=== PATIENT | female | born 1980 | race Caucasian/White ===

== ENCOUNTER → 2020-07-15 | Outpatient (CLI) | payer OTHER, SELFPAY ==
--- NOTE | 2020-07-16 09:08 | MRI ---
EXAM DESCRIPTION: Right knee MRI CLINICAL HISTORY: RIGHT KNEE PN COMPARISON: None Available. TECHNIQUE: MRI of the right knee is performed according to our usual protocol with multiplanar multi sequence imaging. FINDINGS: Moderate right knee joint effusion. Lateral subluxation of the patella on the order of 10 mm with lateral tilting of the patella. TT TG interval 2.5 cm. Mixed grade 2/3 chondrosis mainly in the inferior femoral trochlea. Medial and lateral compartment articular surfaces well maintained. Abnormal appearance of the ACL with marked thickening and increased signal intensity of the distal 70% with subchondral reactive cyst formation in the central tibia at the ACL insertion. Suspect remote prior partial thickness tear with subsequent severe mucoid degeneration. PCL and collateral ligaments intact. Hazy marrow edema posterior aspect of the lateral tibial plateau with a short linear low signal intensity line seen on the sagittal proton density in this area. This is consistent with an incomplete stress fracture. Menisci intact. IMPRESSION: 1. 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 Advanced mucoid degeneration of the ACL 3. Stress fracture posterior lateral tibial plateau Electronically signed by: Soren Moses MD 07/16/2020 9:06 AM [facility]
== END ==
LOC: MRI 09:46
PROVIDERS: ATTEND Family Medicine
DX: M22.41 Chondromalacia patellae, right knee (principal); M23.8X1 Other internal derangements of right knee; M84.361A Stress fracture, right tibia, initial encounter for fracture